=== PATIENT | female | born 1985 | race Caucasian/White ===

== ENCOUNTER 2016-05-10 14:04 | Emergency (ER) | payer OTHER ==
--- NOTE | 2016-05-10 15:09 | ED ORDER SUMMARY ---
..... Patient: LEILA LOPES OrderSheet [facility] VisitID: [id number] [place] [address] 30y, F Registration Date/Time: 05/10/2016 ORDER SHEET Weight: 90.7 kg (stated) Allergies: No Known Drug Allergy GENERAL ORDERS: RSV Rapid Screen (Nasal Pharyngeal) (nasal) Urgent (14:31 05/10/2016 DDean R.N. per protocol) (Ack 14:34 LNations ER Tech1) (14:52 LNations ER Tech1) Rapid Influenza Screen (Nasal Pharyngeal) (nasal) Urgent (14:31 05/10/2016 DDean R.N. per protocol) (Ack 14:34 LNations ER Tech1) (14:52 LNations ER Tech1) MEDICATION ORDERS: IV FLUIDS: ORDER SHEET NOTES: [Electronically signed by Odessa Koroma R.N. (15:22 05/10/2016)] [Electronically signed by Kerri PaulNCharliPCharli (22:47 05/10/2016)] [Electronically locked/signed by Odessa Koroma R.N. (15:22 05/10/2016)]
--- NOTE | 2016-05-10 15:09 | ED CLINICAL REPORT ---
Clinical Report - Physicians/Mid Levels [facility] [address] [place] [address] 05/10/2016 14:05 Patient: LEILA LOPES Time Seen: 14:53; initial patient contact, initial documentation, patient care assumed. Arrived- By private vehicle. Historian- patient. HISTORY OF PRESENT ILLNESS Chief Complaint: COUGH. This started about 1 months ago and is still present and worsening. (now with green productive cough, started in sinuses and now feels like it is moving down into chest). The illness is described as moderate. The patient has had a cough, sinus pressure, sinus drainage and generalized muscle aches. She has had moderate amounts of green sputum. She has had chest soreness (hurts to breathe and cough). No sore throat, nasal congestion or discharge or ear pain. Additional history - The patient has had contact with a sick child. Symptoms of the sick contact include cough. They have had similar symptoms. No recent travel. Similar symptoms previously: None. Recent medical care: Not recently seen/assessed. REVIEW OF SYSTEMS The patient has had a pressure-like frontal and facial headache. All systems otherwise negative, except as recorded above. PAST HISTORY See nurses notes. PROBLEMS: Mastitis. Dental Caries. --14:26 Hang, Cyn RCharliN. ADDITIONAL SURGERIES: no known surgeries. SOCIAL HISTORY Occasional alcohol use. Second-hand smoke exposure. No drug use. No recent travel. Is a local resident. FAMILY HISTORY Negative. ADDITIONAL NOTES The nursing notes have been reviewed with agreement regarding the chief complaint, HPI, ROS, PMH and patient medications and allergies. PHYSICAL EXAM Vital Signs: 05/10/2016 14:20 BP: 127/84. HR: 86. RR: 18. O2 saturation: 98%. Temp: 99.2 F. Pain level now: 6/10. Have been reviewed as normal and appear to be correct. Appearance: Alert. No acute distress. Eyes: Pupils equal, round and reactive to light. Eyes normal inspection. ENT: Ears normal. Nose normal. Pharynx normal. Uvula midline. Neck: Normal inspection. Neck supple. CVS: Normal heart rate and rhythm. Heart sounds normal. Pulses normal. Respiratory: No respiratory distress. Breath sounds normal. Back: Normal inspection. Skin: Skin warm and dry. Normal skin color. No rash. Normal skin turgor. Extremities: Extremities exhibit normal ROM. No lower extremity edema. Neuro: Oriented X 3. No motor deficit. No sensory deficit. PROGRESS AND PROCEDURES Course of Care: MANAGER SERVICES Student Lissette assisting with hx, exam and tx plan, with my supervision. Patient counseled in person regarding the patient's stable condition and diagnosis. 15:09. Differential Diagnosis: Other possible considerations: sinusitis, allergies, uri, viral illness, flu, bronchitis, pneumonia. Above considerations are based on history and physical exam. Differential diagnosis was discussed with patient. Disposition: Discharged home in good and unchanged condition (15:09). Condition: good and stable. CLINICAL IMPRESSION Acute mucopurulent bronchitis. No chronic obstructive pulmonary disease, asthma or bronchospasm. INSTRUCTIONS Do not work today, tomorrow. Warnings: GENERAL WARNINGS: Return or contact your physician immediately if your condition worsens or changes unexpectedly, if not improving as expected, or if other problems arise. Specifically return if problem worsens. Prescription Medications: Zithromax 250 mg tablets: take 2 orally today, followed by 1 daily for the next 4 days. No refills. Substitution is permissible. OTC Medications: Mucinex DM: (available over the counter) take 1 tablet orally every 12 hours as needed for cough. Dispense twenty (20). No refill. Follow-up: Follow up with your doctor in about three days even if well. Call for an appointment. Summary of care provided to patient. Understanding of the discharge instructions verbalized by patient. (Electronically signed by Kerri Paul A.R.N.P. 05/10/2016 22:47)
--- NOTE | 2016-05-10 15:09 | ED CLINICAL REPORT ---
Clinical Report - Physicians/Mid Levels [facility] [address] [place] [address] 05/10/2016 14:05 Patient: LEILA LOPES Time Seen: 14:53; initial patient contact, initial documentation, patient care assumed. Arrived- By private vehicle. Historian- patient. HISTORY OF PRESENT ILLNESS Chief Complaint: COUGH. This started about 1 months ago and is still present and worsening. (now with green productive cough, started in sinuses and now feels like it is moving down into chest). The illness is described as moderate. The patient has had a cough, sinus pressure, sinus drainage and generalized muscle aches. She has had moderate amounts of green sputum. She has had chest soreness (hurts to breathe and cough). No sore throat, nasal congestion or discharge or ear pain. Additional history - The patient has had contact with a sick child. Symptoms of the sick contact include cough. They have had similar symptoms. No recent travel. Similar symptoms previously: None. Recent medical care: Not recently seen/assessed. REVIEW OF SYSTEMS The patient has had a pressure-like frontal and facial headache. All systems otherwise negative, except as recorded above. PAST HISTORY See nurses notes. PROBLEMS: Mastitis. Dental Caries. --14:26 Hang, Cyn RCharliN. ADDITIONAL SURGERIES: no known surgeries. SOCIAL HISTORY Occasional alcohol use. Second-hand smoke exposure. No drug use. No recent travel. Is a local resident. FAMILY HISTORY Negative. ADDITIONAL NOTES The nursing notes have been reviewed with agreement regarding the chief complaint, HPI, ROS, PMH and patient medications and allergies. PHYSICAL EXAM Vital Signs: 05/10/2016 14:20 BP: 127/84. HR: 86. RR: 18. O2 saturation: 98%. Temp: 99.2 F. Pain level now: 6/10. Have been reviewed as normal and appear to be correct. Appearance: Alert. No acute distress. Eyes: Pupils equal, round and reactive to light. Eyes normal inspection. ENT: Ears normal. Nose normal. Pharynx normal. Uvula midline. Neck: Normal inspection. Neck supple. CVS: Normal heart rate and rhythm. Heart sounds normal. Pulses normal. Respiratory: No respiratory distress. Breath sounds normal. Back: Normal inspection. Skin: Skin warm and dry. Normal skin color. No rash. Normal skin turgor. Extremities: Extremities exhibit normal ROM. No lower extremity edema. Neuro: Oriented X 3. No motor deficit. No sensory deficit. PROGRESS AND PROCEDURES Course of Care: MOLD SHIFTER Student Lissette assisting with hx, exam and tx plan, with my supervision. Patient counseled in person regarding the patient's stable condition and diagnosis. 15:09. Differential Diagnosis: Other possible considerations: sinusitis, allergies, uri, viral illness, flu, bronchitis, pneumonia. Above considerations are based on history and physical exam. Differential diagnosis was discussed with patient. Disposition: Discharged home in good and unchanged condition (15:09). Condition: good and stable. CLINICAL IMPRESSION Acute mucopurulent bronchitis. No chronic obstructive pulmonary disease, asthma or bronchospasm. INSTRUCTIONS Do not work today, tomorrow. Warnings: GENERAL WARNINGS: Return or contact your physician immediately if your condition worsens or changes unexpectedly, if not improving as expected, or if other problems arise. Specifically return if problem worsens. Prescription Medications: Zithromax 250 mg tablets: take 2 orally today, followed by 1 daily for the next 4 days. No refills. Substitution is permissible. OTC Medications: Mucinex DM: (available over the counter) take 1 tablet orally every 12 hours as needed for cough. Dispense twenty (20). No refill. Follow-up: Follow up with your doctor in about three days even if well. Call for an appointment. Summary of care provided to patient. Understanding of the discharge instructions verbalized by patient. (Electronically signed by Kerri Paul A.R.N.P. 05/10/2016 22:47)
--- NOTE | 2016-05-10 15:09 | ED ORDER SUMMARY ---
..... Patient: LEILA LOPES OrderSheet [facility] VisitID: [id number] [place] [address] 30y, F Registration Date/Time: 05/10/2016 ORDER SHEET Weight: 90.7 kg (stated) Allergies: No Known Drug Allergy GENERAL ORDERS: RSV Rapid Screen (Nasal Pharyngeal) (nasal) Urgent (14:31 05/10/2016 DDean R.N. per protocol) (Ack 14:34 LNations ER Tech1) (14:52 LNations ER Tech1) Rapid Influenza Screen (Nasal Pharyngeal) (nasal) Urgent (14:31 05/10/2016 DDean R.N. per protocol) (Ack 14:34 LNations ER Tech1) (14:52 LNations ER Tech1) MEDICATION ORDERS: IV FLUIDS: ORDER SHEET NOTES: [Electronically signed by Odessa Koroma R.N. (15:22 05/10/2016)] [Electronically signed by Kerri PaulNCharliPCharli (22:47 05/10/2016)] [Electronically locked/signed by Odessa Koroma R.N. (15:22 05/10/2016)]
--- NOTE | 2016-05-10 15:09 | ED NURSING NOTES ---
Clinical Report - Nurses [facility] [address] [place] [address] 05/10/2016 14:05 Patient: LEILA LOPES TRIAGE Triage time 1420. Acuity: LEVEL 3. Chief Complaint: FEVER, COUGH and BODY ACHES. --14:30 Cyn Mauricio R.N. 14:20 05/10/16. BP: 127/84. HR: 86. RR: 18. O2 saturation: 98%. Temp: 99.2 F. Pain level now: 08/28. --14:30 Cyn Mauricio R.N. Weight: 90.7 kg stated. Height/Length: 67 inches Per Patient. BMI: 31.3. --14:28 Cyn Mauricio R.N. Medications None. --14:27 Cyn Mauricio R.N. Gemma-Delancey Plus Cold & Flu Oral, prn, last dose 0400. Ibuprofen Oral 800 mg, PRN, last dose 0400. --14:27 Cyn Mauricio R.N. Allergies No Known Drug Allergy. --14:27 Cyn Mauricio R.N. History Arrived by private vehicle. Historian: patient. Unaccompanied. No primary care physician. Onset. (has been sick off and on x 1 month. 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 ( Pt in today due to cough with greenish sutum and chest pain bilateral axillary areas and mid sternal with cough). She has had a headache. ( had a recent sinus infection -taking only sudafed). PAST MEDICAL HX: Last normal menstrual period- 1 month--has IUD. SURGERY HX: No history of previous surgery. SOCIAL HX: Smoker- current status unknown (2nd hand smoke from boyrfriend and mom). Occasional alcohol use. No drug use. --14:30 Cyn Mauricio R.N. PROBLEMS: Mastitis. Dental Caries. --14:26 Cyn Mauricio R.N. ADDITIONAL SURGERIES: no known surgeries. Interventions ID band on patient. To treatment room. --14:30 Cyn Mauricio R.N. NURSING PROGRESS NOTES 14:20. Patient gowned. Head of bed elevated. Reassurance given. Patient identifiers checked. Call light placed in reach. Side rails up. Bed placed in lowest position. Patient ready for evaluation- chart flagged. --14:30 Cyn Mauricio R.N. 14:25. Flu swab obtained. Patient ID band checked for patient name and birthdate: patient confirmed. RSV nasal swab obtained by RN via nasal pharyngeal swab. Labeled in the presence of the patient and sent to lab. --14:30 Cyn Mauricio R.N. DISPOSITION / DISCHARGE 15:15. Condition at departure: unchanged and stable. No learning barriers present. Discharge instructions provided and reviewed with the patient. Reviewed medication(s) dosing information. Prescription(s) given to the patient (mucinex and z pack). Work note given. Patient verbalized understanding. Written instructions provided in Amharic. The patient was discharged home. She left the Emergency Department ambulatory and via private vehicle. Patient driving. --15:21 Odessa Koroma R.N. 15:15 05/10/16. BP: deferred. HR: deferred. RR: deferred. O2 saturation: deferred. Temp: deferred. Pain level now deferred. --15:21 Odessa Koroma R.N. Locked/Released at 05/10/2016 15:22 by Odessa Koroma R.N.
--- NOTE | 2016-05-10 15:09 | ED NURSING NOTES ---
Clinical Report - Nurses [facility] [address] [place] [address] 05/10/2016 14:05 Patient: LEILA LOPES TRIAGE Triage time 1420. Acuity: LEVEL 3. Chief Complaint: FEVER, COUGH and BODY ACHES. --14:30 Cyn Mauricio R.N. 14:20 05/10/16. BP: 127/84. HR: 86. RR: 18. O2 saturation: 98%. Temp: 99.2 F. Pain level now: 08/28. --14:30 Cyn Mauricio R.N. Weight: 90.7 kg stated. Height/Length: 67 inches Per Patient. BMI: 31.3. --14:28 Cyn Mauricio R.N. Medications None. --14:27 Cyn Mauricio R.N. Gemma-Proctor Plus Cold & Flu Oral, prn, last dose 0400. Ibuprofen Oral 800 mg, PRN, last dose 0400. --14:27 Cyn Mauricio R.N. Allergies No Known Drug Allergy. --14:27 Cyn Mauricio R.N. History Arrived by private vehicle. Historian: patient. Unaccompanied. No primary care physician. Onset. (has been sick off and on x 1 month. 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 ( Pt in today due to cough with greenish sutum and chest pain bilateral axillary areas and mid sternal with cough). She has had a headache. ( had a recent sinus infection -taking only sudafed). PAST MEDICAL HX: Last normal menstrual period- 1 month--has IUD. SURGERY HX: No history of previous surgery. SOCIAL HX: Smoker- current status unknown (2nd hand smoke from boyrfriend and mom). Occasional alcohol use. No drug use. --14:30 Cyn Mauricio R.N. PROBLEMS: Mastitis. Dental Caries. --14:26 Cyn Mauricio R.N. ADDITIONAL SURGERIES: no known surgeries. Interventions ID band on patient. To treatment room. --14:30 Cyn Mauricio R.N. NURSING PROGRESS NOTES 14:20. Patient gowned. Head of bed elevated. Reassurance given. Patient identifiers checked. Call light placed in reach. Side rails up. Bed placed in lowest position. Patient ready for evaluation- chart flagged. --14:30 Cyn Mauricio R.N. 14:25. Flu swab obtained. Patient ID band checked for patient name and birthdate: patient confirmed. RSV nasal swab obtained by RN via nasal pharyngeal swab. Labeled in the presence of the patient and sent to lab. --14:30 Cyn Mauricio R.N. DISPOSITION / DISCHARGE 15:15. Condition at departure: unchanged and stable. No learning barriers present. Discharge instructions provided and reviewed with the patient. Reviewed medication(s) dosing information. Prescription(s) given to the patient (mucinex and z pack). Work note given. Patient verbalized understanding. Written instructions provided in Kinyarwanda. The patient was discharged home. She left the Emergency Department ambulatory and via private vehicle. Patient driving. --15:21 Odessa Koroma R.N. 15:15 05/10/16. BP: deferred. HR: deferred. RR: deferred. O2 saturation: deferred. Temp: deferred. Pain level now deferred. --15:21 Odessa Koroma R.N. Locked/Released at 05/10/2016 15:22 by Odessa Koroma R.N.
--- NOTE | 2016-05-10 22:49 | ED MED RECONCILIATION SUMMARY ---
Patient: LEILA LOPES Medication Reconciliation Report [facility] VisitID: [id number] [place] [address] 30y, F Registration Date/Time: 05/10/2016 Weight: 90.7 kg Height/Length: 67 in. BMI: 31.3 ALLERGIES: No Known Drug Allergy The patient's Home Medications are listed below: THE FOLLOWING MEDICATIONS NEED TO BE RECONCILED: Gemma-Mary D Plus Cold & Flu Oral, prn, last dose: 0400 Ibuprofen Oral 800 mg, PRN, last dose: 0400 The source(s) of the original Home Medication information: Not obtained. The following Medications were given to the patient in the Emergency Department: None. The following Medications were prescribed to the patient: Zithromax 250 mg tablets: take 2 orally today, followed by 1 daily for the next 4 days. No refills. Substitution is permissible. -- Kerri Paul A.R.NCharliP. Mucinex DM: (available over the counter) take 1 tablet orally every 12 hours as needed for cough. Dispense twenty (20). No refill. -- Kerri Paul A.R.NCharliP.
--- NOTE | 2016-05-10 22:49 | ED DISCHARGE INSTRUCTIONS ---
Patient: LEILA LOPES General Instructions [facility] VisitID: [id number] [place] [address] 30y, F Registration Date/Time: 05/10/2016 INSTRUCTIONS Do not work today, tomorrow. Warnings: GENERAL WARNINGS: Return or contact your physician immediately if your condition worsens or changes unexpectedly, if not improving as expected, or if other problems arise. Specifically return if problem worsens. Prescription Medications: Zithromax 250 mg tablets: take 2 orally today, followed by 1 daily for the next 4 days. No refills. Substitution is permissible. OTC Medications: Mucinex DM: (available over the counter) take 1 tablet orally every 12 hours as needed for cough. Dispense twenty (20). No refill. Follow-up: Follow up with your doctor in about three days even if well. Call for an appointment. Summary of care provided to patient. Understanding of the discharge instructions verbalized by patient. ADDITIONAL INFORMATION Bronchitis (Adult: Abx Tx) BRONCHITIS is an infection of the air passages (bronchial tubes). It often occurs during the common cold. Symptoms include cough with mucus (phlegm) and low-grade fever. Bronchitis usually lasts 7-14 days. Mild cases can be treated with simple home remedies. More severe infection is treated with an antibiotic. Home Care: If symptoms are severe, rest at home for the first 2-3 days. When you resume activity, don't let yourself get too tired. Do not smoke. Avoid being exposed to the smoke of others. You may use acetaminophen (Tylenol) or ibuprofen (Motrin, Advil) to control fever or pain, unless another medicine was prescribed for this. [NOTE: If you have chronic liver or kidney disease or ever had a stomach ulcer or GI bleeding, talk with your doctor before using these medicines.] Your appetite may be poor, so a light diet is fine. Avoid dehydration by drinking 6-8 glasses of fluids per day (water, soft, drinks, juices, tea, soup, etc.). Extra fluids will help loosen secretions in the lungs. Umra-dbu-ufpaorc cough medicines that containdextromethorphan(such as Robitussin DM) and decongestants (Actifed or Sudafed) may help relieve cough and congestion. [NOTE: Do not use decongestants if you have high blood pressure.] Finish all antibiotic medicine, even if you are feeling better after only a few days. Follow Up with your doctor or as directed if you dont start to feel better after three days. [NOTE: If you are age 65 or older, or if you have chronic asthma or COPD, we recommend a PNEUMOCOCCAL VACCINATION every five years and a yearly INFLUENZAVACCINATION (FLU-SHOT) every . Ask your doctor about this. If you had an X-ray, a radiologist will review it. You will be notified of any new findings that may affect your care.] Get Prompt Medical Attention if any of the following occur: Fever over 100.4F (38.0C) for more than three days Trouble breathing, wheezing or pain with breathing Coughing up blood or increased amounts of colored sputum Weakness, drowsiness, headache, facial pain, ear pain or a stiff neck Azithromycin Oral tablet What is this medicine? AZITHROMYCIN (az ith anders MYE sin) is a macrolide antibiotic. It is used to treat or prevent certain kinds of bacterial infections. It will not work for colds, flu, or other viral infections. How should I use this medicine? Take this medicine by mouth with a full glass of water. Follow the directions on the prescription label. The tablets can be taken with food or on an empty stomach. If the medicine upsets your stomach, take it with food. Take your medicine at regular intervals. Do not take your medicine more often than directed. Take all of your medicine as directed even if you think your are better. Do not skip doses or stop your medicine early. Talk to your cleaning and washing equipment operator regarding the use of this medicine in children. Special care may be needed. What side effects may I notice from receiving this medicine? Side effects that you should report to your doctor or health daycare assistant as soon as possible: allergic reactions like skin rash, itching or hives, swelling of the face, lips, or tongue confusion, nightmares or hallucinations dark urine difficulty breathing hearing loss irregular heartbeat or chest pain pain or difficulty passing urine redness, blistering, peeling or loosening of the skin, including inside the mouth white patches or sores in the mouth yellowing of the eyes or skin Side effects that usually do not require medical attention (report to your doctor or health daycare assistant if they continue or are bothersome): diarrhea dizziness, drowsiness headache stomach upset or vomiting tooth discoloration vaginal irritation What may interact with this medicine? Do not take this medicine with any of the following medications: lincomycin This medicine may also interact with the following medications: amiodarone antacids cyclosporine digoxin magnesium nelfinavir phenytoin warfarin What if I miss a dose? If you miss a dose, take it as soon as you can. If it is almost time for your next dose, take only that dose. Do not take double or extra doses. Where should I keep my medicine? Keep out of the reach of children. Store at room temperature between 15 and 30 degrees C (59 and 86 degrees F). Throw away any unused medicine after the expiration date. What should I tell my health care provider before I take this medicine? They need to know if you have any of these conditions: kidney disease liver disease irregular heartbeat or heart disease an unusual or allergic reaction to azithromycin, erythromycin, other macrolide antibiotics, foods, dyes, or preservatives or trying to get breast-feeding What should I watch for while using this medicine? Tell your doctor or health daycare assistant if your symptoms do not improve. Do not treat diarrhea with over the counter products. Contact your doctor if you have diarrhea that lasts more than 2 days or if it is severe and watery. This medicine can make you more sensitive to the sun. Keep out of the sun. If you cannot avoid being in the sun, wear protective clothing and use sunscreen. Do not use sun lamps or tanning beds/booths. Guaifenesin Oral syrup What is this medicine? GUAIFENESIN (gwye FEN e sin) is an expectorant. It helps to thin mucous and make coughs more productive. This medicine is used to treat coughs caused by colds or the flu. It is not intended to treat chronic cough caused by smoking, asthma, emphysema, or heart failure. How should I use this medicine? Take this medicine by mouth. Follow the directions on the prescription label. Use a specially marked spoon or container to measure your dose. Household spoons are not accurate. Take your medicine at regular intervals. Do not take it more often than directed. Talk to your cleaning and washing equipment operator regarding the use of this medicine in children. Special care may be needed. What side effects may I notice from receiving this medicine? Side effects that you should report to your doctor or health daycare assistant as soon as possible: allergic reactions like skin rash, itching or hives, swelling of the face, lips, or tongue Side effects that usually do not require medical attention (report to your doctor or health daycare assistant if they continue or are bothersome): dizziness headache stomach upset What may interact with this medicine? Interactions are not expected. What if I miss a dose? If you miss a dose, take it as soon as you can. If it is almost time for your next dose, take only that dose. Do not take double or extra doses. Where should I keep my medicine? Keep out of the reach of children. Store at room temperature between 20 and 25 degrees C (68 and 77 degrees F). Do not freeze. Keep container tightly closed. Throw away any unused medicine after the expiration date. What should I tell my health care provider before I take this medicine? They need to know if you have any of these conditions: diabetes fever kidney disease an unusual or allergic reaction to guaifenesin, other medicines, foods, dyes, or preservatives or trying to get breast-feeding What should I watch for while using this medicine? Do not treat a cough for more than 1 week without consulting your doctor or health daycare assistant. If you also have a high fever, skin rash, continuing headache, or sore throat, see your doctor. For best results, drink 6 to 8 glasses water daily while you are taking this medicine. You have been given the following additional information: Bronchitis, Antiobiotic Treatment (Adult) Azithromycin Oral tablet Guaifenesin Oral syrup Do not work today, tomorrow. (Electronically signed by Kerri Paul A.R.N.P. 05/10/2016 22:47)
--- NOTE | 2016-05-10 22:49 | ED MAR SUMMARY ---
..... Medication Administration Record [facility] [address] [place], [place] [id number] Patient: LEILA LOPES Visit ID: [id number] 30y, F Weight: 90.7 kg Height/Length: 67 in BMI: 31.3 ALLERGIES: No Known Drug Allergy
--- NOTE | 2016-05-10 22:49 | ED MAR SUMMARY ---
..... Medication Administration Record [facility] [address] [place], [place] [id number] Patient: LEILA LOPES Visit ID: [id number] 30y, F Weight: 90.7 kg Height/Length: 67 in BMI: 31.3 ALLERGIES: No Known Drug Allergy
--- NOTE | 2016-05-10 22:49 | ED MED RECONCILIATION SUMMARY ---
Patient: LEILA LOPES Medication Reconciliation Report [facility] VisitID: [id number] [place] [address] 30y, F Registration Date/Time: 05/10/2016 Weight: 90.7 kg Height/Length: 67 in. BMI: 31.3 ALLERGIES: No Known Drug Allergy The patient's Home Medications are listed below: THE FOLLOWING MEDICATIONS NEED TO BE RECONCILED: Gemma-Charlotte Plus Cold & Flu Oral, prn, last dose: 0400 Ibuprofen Oral 800 mg, PRN, last dose: 0400 The source(s) of the original Home Medication information: Not obtained. The following Medications were given to the patient in the Emergency Department: None. The following Medications were prescribed to the patient: Zithromax 250 mg tablets: take 2 orally today, followed by 1 daily for the next 4 days. No refills. Substitution is permissible. -- Kerri Paul A.R.NCharliP. Mucinex DM: (available over the counter) take 1 tablet orally every 12 hours as needed for cough. Dispense twenty (20). No refill. -- Kerri Paul A.R.NCharliP.
--- NOTE | 2016-05-10 22:49 | ED DISCHARGE INSTRUCTIONS ---
Patient: LEILA LOPES General Instructions [facility] VisitID: [id number] [place] [address] 30y, F Registration Date/Time: 05/10/2016 INSTRUCTIONS Do not work today, tomorrow. Warnings: GENERAL WARNINGS: Return or contact your physician immediately if your condition worsens or changes unexpectedly, if not improving as expected, or if other problems arise. Specifically return if problem worsens. Prescription Medications: Zithromax 250 mg tablets: take 2 orally today, followed by 1 daily for the next 4 days. No refills. Substitution is permissible. OTC Medications: Mucinex DM: (available over the counter) take 1 tablet orally every 12 hours as needed for cough. Dispense twenty (20). No refill. Follow-up: Follow up with your doctor in about three days even if well. Call for an appointment. Summary of care provided to patient. Understanding of the discharge instructions verbalized by patient. ADDITIONAL INFORMATION Bronchitis (Adult: Abx Tx) BRONCHITIS is an infection of the air passages (bronchial tubes). It often occurs during the common cold. Symptoms include cough with mucus (phlegm) and low-grade fever. Bronchitis usually lasts 7-14 days. Mild cases can be treated with simple home remedies. More severe infection is treated with an antibiotic. Home Care: If symptoms are severe, rest at home for the first 2-3 days. When you resume activity, don't let yourself get too tired. Do not smoke. Avoid being exposed to the smoke of others. You may use acetaminophen (Tylenol) or ibuprofen (Motrin, Advil) to control fever or pain, unless another medicine was prescribed for this. [NOTE: If you have chronic liver or kidney disease or ever had a stomach ulcer or GI bleeding, talk with your doctor before using these medicines.] Your appetite may be poor, so a light diet is fine. Avoid dehydration by drinking 6-8 glasses of fluids per day (water, soft, drinks, juices, tea, soup, etc.). Extra fluids will help loosen secretions in the lungs. Qvaq-vyy-yrgroxl cough medicines that containdextromethorphan(such as Robitussin DM) and decongestants (Actifed or Sudafed) may help relieve cough and congestion. [NOTE: Do not use decongestants if you have high blood pressure.] Finish all antibiotic medicine, even if you are feeling better after only a few days. Follow Up with your doctor or as directed if you dont start to feel better after three days. [NOTE: If you are age 65 or older, or if you have chronic asthma or COPD, we recommend a PNEUMOCOCCAL VACCINATION every five years and a yearly INFLUENZAVACCINATION (FLU-SHOT) every . Ask your doctor about this. If you had an X-ray, a radiologist will review it. You will be notified of any new findings that may affect your care.] Get Prompt Medical Attention if any of the following occur: Fever over 100.4F (38.0C) for more than three days Trouble breathing, wheezing or pain with breathing Coughing up blood or increased amounts of colored sputum Weakness, drowsiness, headache, facial pain, ear pain or a stiff neck Azithromycin Oral tablet What is this medicine? AZITHROMYCIN (az ith anders MYE sin) is a macrolide antibiotic. It is used to treat or prevent certain kinds of bacterial infections. It will not work for colds, flu, or other viral infections. How should I use this medicine? Take this medicine by mouth with a full glass of water. Follow the directions on the prescription label. The tablets can be taken with food or on an empty stomach. If the medicine upsets your stomach, take it with food. Take your medicine at regular intervals. Do not take your medicine more often than directed. Take all of your medicine as directed even if you think your are better. Do not skip doses or stop your medicine early. Talk to your heel seat trimmer regarding the use of this medicine in children. Special care may be needed. What side effects may I notice from receiving this medicine? Side effects that you should report to your doctor or health managed care nurse as soon as possible: allergic reactions like skin rash, itching or hives, swelling of the face, lips, or tongue confusion, nightmares or hallucinations dark urine difficulty breathing hearing loss irregular heartbeat or chest pain pain or difficulty passing urine redness, blistering, peeling or loosening of the skin, including inside the mouth white patches or sores in the mouth yellowing of the eyes or skin Side effects that usually do not require medical attention (report to your doctor or health managed care nurse if they continue or are bothersome): diarrhea dizziness, drowsiness headache stomach upset or vomiting tooth discoloration vaginal irritation What may interact with this medicine? Do not take this medicine with any of the following medications: lincomycin This medicine may also interact with the following medications: amiodarone antacids cyclosporine digoxin magnesium nelfinavir phenytoin warfarin What if I miss a dose? If you miss a dose, take it as soon as you can. If it is almost time for your next dose, take only that dose. Do not take double or extra doses. Where should I keep my medicine? Keep out of the reach of children. Store at room temperature between 15 and 30 degrees C (59 and 86 degrees F). Throw away any unused medicine after the expiration date. What should I tell my health care provider before I take this medicine? They need to know if you have any of these conditions: kidney disease liver disease irregular heartbeat or heart disease an unusual or allergic reaction to azithromycin, erythromycin, other macrolide antibiotics, foods, dyes, or preservatives or trying to get breast-feeding What should I watch for while using this medicine? Tell your doctor or health managed care nurse if your symptoms do not improve. Do not treat diarrhea with over the counter products. Contact your doctor if you have diarrhea that lasts more than 2 days or if it is severe and watery. This medicine can make you more sensitive to the sun. Keep out of the sun. If you cannot avoid being in the sun, wear protective clothing and use sunscreen. Do not use sun lamps or tanning beds/booths. Guaifenesin Oral syrup What is this medicine? GUAIFENESIN (gwye FEN e sin) is an expectorant. It helps to thin mucous and make coughs more productive. This medicine is used to treat coughs caused by colds or the flu. It is not intended to treat chronic cough caused by smoking, asthma, emphysema, or heart failure. How should I use this medicine? Take this medicine by mouth. Follow the directions on the prescription label. Use a specially marked spoon or container to measure your dose. Household spoons are not accurate. Take your medicine at regular intervals. Do not take it more often than directed. Talk to your heel seat trimmer regarding the use of this medicine in children. Special care may be needed. What side effects may I notice from receiving this medicine? Side effects that you should report to your doctor or health managed care nurse as soon as possible: allergic reactions like skin rash, itching or hives, swelling of the face, lips, or tongue Side effects that usually do not require medical attention (report to your doctor or health managed care nurse if they continue or are bothersome): dizziness headache stomach upset What may interact with this medicine? Interactions are not expected. What if I miss a dose? If you miss a dose, take it as soon as you can. If it is almost time for your next dose, take only that dose. Do not take double or extra doses. Where should I keep my medicine? Keep out of the reach of children. Store at room temperature between 20 and 25 degrees C (68 and 77 degrees F). Do not freeze. Keep container tightly closed. Throw away any unused medicine after the expiration date. What should I tell my health care provider before I take this medicine? They need to know if you have any of these conditions: diabetes fever kidney disease an unusual or allergic reaction to guaifenesin, other medicines, foods, dyes, or preservatives or trying to get breast-feeding What should I watch for while using this medicine? Do not treat a cough for more than 1 week without consulting your doctor or health managed care nurse. If you also have a high fever, skin rash, continuing headache, or sore throat, see your doctor. For best results, drink 6 to 8 glasses water daily while you are taking this medicine. You have been given the following additional information: Bronchitis, Antiobiotic Treatment (Adult) Azithromycin Oral tablet Guaifenesin Oral syrup Do not work today, tomorrow. (Electronically signed by Kerri Paul A.R.N.P. 05/10/2016 22:47)
== END 2016-05-10 15:14 | disposition home or self-care (01) ==
LOC: ED SRH 14:04
DX: J20.9 Acute bronchitis, unspecified (principal); Z77.22 Contact with and (suspected) exposure to environmental tobacco smoke (acute) (chronic)
CPT/HCPCS: 91400; 91576

== ENCOUNTER 2016-06-22 16:11 | Emergency (ER) | payer OTHER ==
--- NOTE | 2016-06-22 16:37 | ED NURSING NOTES ---
Clinical Report - Nurses [facility] [address] [place] [address] 06/22/2016 16:12 Patient: LEILA LOPES TRIAGE Triage time 16:24. Acuity: LEVEL 4. Chief Complaint: ALLERGIC REACTION and HIVES. Alert. No acute distress. SEPSIS SCREEN: Sepsis Screen. Negative (no infection suspected/documented). SHEILA COMA SCORE: Sheila Coma Scale: 15- eyes open spontaneously (4); best verbal response- oriented x 4 (5); best motor response- obeys commands (6). --16:30 Janiya Braun R.N. 16:24 06/22/16. BP: 107/69. HR: 103. RR: 18. O2 saturation: 100%. Temp: 98.7 F. Pain level now 5/10. --16:30 Janiya Braun R.N. Weight: 92 kg stated. Height/Length: 67 inches Per Patient. BMI: 31.8. --16:27 Janiya Braun R.N. Medications None. --16:29 Janiya Braun R.N. Allergies No Known Drug Allergy. --16:29 Janiya Braun R.N. History Arrived by private vehicle. Historian: patient. Accompanied by (boyfriend). Primary physician (none). This started last night. Onset. (1 hour ago got worse). 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 (last dose in the AM at 1030). PAST MEDICAL HX: Immunizations: up-to-date. SOCIAL HX: Never smoker. No alcohol use or drug use. ABUSE ASSESSMENT: Abuse assessment: The patient was asked "Do you feel safe in your home?" and "Has anyone hurt you or threatened to hurt you?". No report of abuse. SELF HARM ASSESSMENT: A self harm assessment was performed. The patient answered "no" to the question "Do you have thoughts of harming or killing yourself?" and "Have you recently had thoughts about harming or killing others?". NUTRITIONAL RISK ASSESSMENT: The nutritional risk assessment revealed no deficiencies. FUNCTIONAL ASSESSMENT: Functional assessment: no impairments noted. LEARNING NEEDS ASSESSMENT: The learning needs assessment revealed no barriers. --16:30 Janiya Braun R.N. PROBLEMS: Bronchitis. Mastitis. --16:30 Janiya Braun R.N. Interventions ID band on patient. Ambulatory. --16:30 Janiya Braun R.N. PHYSICAL ASSESSMENT Ambulatory to room. GENERAL / NEURO / PSYCH: Alert. The patient does not appear to be in acute distress. RESPIRATORY: Respirations not labored. CVS: Capillary refill less than 2 seconds. SKIN: Skin is warm and dry. Urticaria- associated with itching and swelling. --16:31 Janiya Braun R.N. NURSING PROGRESS NOTES Patient gowned. Two patient identifiers checked. Call light placed in reach. Side rails up x 2. Bed placed in lowest position. Brakes of bed on. Patient ready for evaluation- chart flagged. --16:31 Janiya Braun R.N. 16:38 06/22/2016 Benadryl (DiphenhydrAMINE HCl) IM 50 mg given. Given in the right gluteus junior. Allergies verified, confirmed 5 rights and sedative warning given to the patient and patient's bottle blowing machine tender. --16:38 Manuel Colon R.N. 16:38 06/22/2016 Decadron (Dexamethasone Sodium Phosphate) IM 8 mg given. Given in the left gluteus junior. Allergies verified and confirmed 5 rights. --16:38 Manuel Colon R.N. 16:38 06/22/2016 Pepcid (Famotidine) PO Tablets 40 mg given. Allergies verified and confirmed 5 rights. --16:39 Manuel Colon R.N. DISPOSITION / DISCHARGE Departure time: 16:44 Jun 22 2016. Condition at departure: improved. No learning barriers present. Discharge instructions provided and reviewed with the patient and spouse. Reviewed warnings. Reviewed medication(s). Treatments reviewed. Reviewed referrals. Patient verbalized understanding. Written instructions provided in Irish. The patient was discharged home and accompanied by spouse. She left the Emergency Department ambulatory and via private vehicle. Spouse driving. --16:44 Manuel Colon R.N. 16:24 06/22/16. BP: 107/69. HR: 103. RR: 18. O2 saturation: 100%. Temp: 98.7 F. Pain level now 07/28. --16:44 Manuel Colon R.N. Locked/Released at 06/22/2016 19:19 by Manuel Colon R.N.
--- NOTE | 2016-06-22 16:37 | ED NURSING NOTES ---
Clinical Report - Nurses [facility] [address] [place] [address] 06/22/2016 16:12 Patient: LEILA LOPES TRIAGE Triage time 16:24. Acuity: LEVEL 4. Chief Complaint: ALLERGIC REACTION and HIVES. Alert. No acute distress. SEPSIS SCREEN: Sepsis Screen. Negative (no infection suspected/documented). SHEILA COMA SCORE: Sheila Coma Scale: 15- eyes open spontaneously (4); best verbal response- oriented x 4 (5); best motor response- obeys commands (6). --16:30 Janiya Braun R.N. 16:24 06/22/16. BP: 107/69. HR: 103. RR: 18. O2 saturation: 100%. Temp: 98.7 F. Pain level now 5/10. --16:30 Janiya Braun R.N. Weight: 92 kg stated. Height/Length: 67 inches Per Patient. BMI: 31.8. --16:27 Janiya Braun R.N. Medications None. --16:29 Janiya Braun R.N. Allergies No Known Drug Allergy. --16:29 Janiya Braun R.N. History Arrived by private vehicle. Historian: patient. Accompanied by (boyfriend). Primary physician (none). This started last night. Onset. (1 hour ago got worse). 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 (last dose in the AM at 1030). PAST MEDICAL HX: Immunizations: up-to-date. SOCIAL HX: Never smoker. No alcohol use or drug use. ABUSE ASSESSMENT: Abuse assessment: The patient was asked "Do you feel safe in your home?" and "Has anyone hurt you or threatened to hurt you?". No report of abuse. SELF HARM ASSESSMENT: A self harm assessment was performed. The patient answered "no" to the question "Do you have thoughts of harming or killing yourself?" and "Have you recently had thoughts about harming or killing others?". NUTRITIONAL RISK ASSESSMENT: The nutritional risk assessment revealed no deficiencies. FUNCTIONAL ASSESSMENT: Functional assessment: no impairments noted. LEARNING NEEDS ASSESSMENT: The learning needs assessment revealed no barriers. --16:30 Janiya Braun R.N. PROBLEMS: Bronchitis. Mastitis. --16:30 Janiya Braun R.N. Interventions ID band on patient. Ambulatory. --16:30 Janiya Braun R.N. PHYSICAL ASSESSMENT Ambulatory to room. GENERAL / NEURO / PSYCH: Alert. The patient does not appear to be in acute distress. RESPIRATORY: Respirations not labored. CVS: Capillary refill less than 2 seconds. SKIN: Skin is warm and dry. Urticaria- associated with itching and swelling. --16:31 Janiya Braun R.N. NURSING PROGRESS NOTES Patient gowned. Two patient identifiers checked. Call light placed in reach. Side rails up x 2. Bed placed in lowest position. Brakes of bed on. Patient ready for evaluation- chart flagged. --16:31 Janiya Braun R.N. 16:38 06/22/2016 Benadryl (DiphenhydrAMINE HCl) IM 50 mg given. Given in the right gluteus junior. 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 --16:38 Manuel Colon R.N. 16:38 06/22/2016 Decadron (Dexamethasone Sodium Phosphate) IM 8 mg given. Given in the left gluteus junior. Allergies verified and confirmed 5 rights. --16:38 Manuel Colon R.N. 16:38 06/22/2016 Pepcid (Famotidine) PO Tablets 40 mg given. Allergies verified and confirmed 5 rights. --16:39 Manuel Colon R.N. DISPOSITION / DISCHARGE Departure time: 16:44 Jun 22 2016. Condition at departure: improved. No learning barriers present. Discharge instructions provided and reviewed with the patient and spouse. Reviewed warnings. Reviewed medication(s). Treatments reviewed. Reviewed referrals. Patient verbalized understanding. Written instructions provided in [place]ian. The patient was discharged home and accompanied by spouse. She left the Emergency Department ambulatory and via private vehicle. Spouse driving. --16:44 Manuel Colon R.N. 16:24 06/22/16. BP: 107/69. HR: 103. RR: 18. O2 saturation: 100%. Temp: 98.7 F. Pain level now 07/28. --16:44 Manuel Colon R.N. Locked/Released at 06/22/2016 19:19 by Manuel Colon R.N.
--- NOTE | 2016-06-22 16:37 | ED ORDER SUMMARY ---
..... Patient: LEILA LOPES OrderSheet [facility] VisitID: [id number] [place] [address] 31y, F Registration Date/Time: 06/22/2016 ORDER SHEET Weight: 92.0 kg (stated) Allergies: No Known Drug Allergy GENERAL ORDERS: MEDICATION ORDERS: Benadryl IM 50 mg (NOW) (16:30 06/22/2016 HBivens A.R.N.P.) (Ack 16:31 SReitz R.N.) (16:38 LWhalen R.N.) Decadron IM 8 mg (NOW) (16:30 06/22/2016 HBivens A.R.N.P.) (Ack 16:31 SReitz R.N.) (16:38 LWhalen R.N.) Pepcid PO 40 mg (NOW) (16:31 06/22/2016 HBivens A.R.N.P.) (Ack 16:31 SReitz R.N.) (16:39 LWhalen R.N.) IV FLUIDS: ORDER SHEET NOTES: [Electronically signed by Manuel Colon R.N. (19:19 06/22/2016)] [Electronically signed by Kerri Paul.R.N.P. (19:38 06/22/2016)] [Electronically locked/signed by Manuel Colon R.N. (19:19 06/22/2016)]
--- NOTE | 2016-06-22 16:37 | ED ORDER SUMMARY ---
..... Patient: LEILA LOPES OrderSheet [facility] VisitID: [id number] [place] [address] 31y, F Registration Date/Time: 06/22/2016 ORDER SHEET Weight: 92.0 kg (stated) Allergies: No Known Drug Allergy GENERAL ORDERS: MEDICATION ORDERS: Benadryl IM 50 mg (NOW) (16:30 06/22/2016 HBivens A.R.N.P.) (Ack 16:31 SReitz R.N.) (16:38 LWhalen R.N.) Decadron IM 8 mg (NOW) (16:30 06/22/2016 HBivens A.R.N.P.) (Ack 16:31 SReitz R.N.) (16:38 LWhalen R.N.) Pepcid PO 40 mg (NOW) (16:31 06/22/2016 HBivens A.R.N.P.) (Ack 16:31 SReitz R.N.) (16:39 LWhalen R.N.) IV FLUIDS: ORDER SHEET NOTES: [Electronically signed by Manuel Colon R.N. (19:19 06/22/2016)] [Electronically signed by Kerri Paul.R.N.P. (19:38 06/22/2016)] [Electronically locked/signed by Manuel Colon R.N. (19:19 06/22/2016)]
--- NOTE | 2016-06-22 16:37 | ED CLINICAL REPORT ---
Clinical Report - Physicians/Mid Levels [facility] [address] [place] [address] 06/22/2016 16:12 Patient: LEILA LOPES Time Seen: 1623; upon arrival, initial patient contact, initial documentation, patient care assumed. Arrived- By private vehicle. Historian- patient. HISTORY OF PRESENT ILLNESS Chief Complaint: ALLERGIC REACTION, SKIN RASH, ITCHING and "HIVES". The patient has had a skin rash and itching but not had swelling or trouble swallowing. No difficulty breathing, dizziness or fainting episodes. This started today and is still present and worsening. It was abrupt in onset and has been constant. A possible cause has been identified. She was recently exposed to food (as possible allergen) - (dairy products). The patient was not assessed by EMS prior to arrival. The patient self administered medication prior to arrival including Benadryl (took x2 pills at 1030, rash went away, but came right back). Similar symptoms previously: Once, worse. Recent medical care: Not recently seen/assessed. REVIEW OF SYSTEMS No sore throat. All systems otherwise negative, except as recorded above. PAST HISTORY See nurses notes. Prior allergic reaction. PROBLEMS: Bronchitis. Mastitis. --16:30 Janiya Braun R.N. SOCIAL HISTORY Never smoker. No alcohol use or drug use. No recent travel. Is a local resident. FAMILY HISTORY Negative. ADDITIONAL NOTES The nursing notes have been reviewed with agreement regarding the chief complaint, HPI, ROS, PMH and patient medications and allergies. PHYSICAL EXAM Vital Signs: 06/22/2016 16:24 BP: 107/69. HR: 103. RR: 18. O2 saturation: 100%. Temp: 98.7 F. Have been reviewed as abnormal and appear to be correct. Blood pressure normal. Tachycardic. Respiratory rate normal. Temperature normal. Oxygen saturation normal. Appearance: Alert. Oriented X3. No acute distress. Head and Neck: Normal external inspection. Eyes: Pupils equal, round and reactive to light. ENT: Ears normal. Nose normal. Pharynx normal. Voice normal. Neck: Neck supple. CVS: Normal heart rate and rhythm. Heart sounds normal. Respiratory: No respiratory distress. Breath sounds normal. Abdomen: Nontender. No organomegaly. Skin: Skin warm and dry. Normal skin turgor. Extremities: Normal external inspection. Extremities nontender. Skin: Moderate urticaria involving the chest, abdomen and back, right upper extremity, right arm, right elbow, right forearm, left upper extremity, left arm, left elbow and left thigh. Normal skin color. Rash present. Urticaria present. Neuro: Oriented X 3. No motor deficit. No sensory deficit. PROGRESS AND PROCEDURES Patient counseled in person regarding the patient's stable condition and diagnosis. Differential Diagnosis: I considered contact dermatitis, yeast infection, type 1 hypersensitivity, drug eruption, toxic epidermal necrolysis, idiopathic urticaria, erythema multiforme, erythema nodosum, viral exanthem, varicella, measles, rubella, roseola and scarlet fever as a possible cause of rash in this patient. This is a partial list of diagnoses considered. Above considerations are based on history and physical exam. Differential diagnosis was discussed with patient. Disposition: Discharged home in good and improved condition. Condition: good and stable. CLINICAL IMPRESSION Acute urticaria secondary to allergy. Generalized allergic reaction with skin rash and hives of unknown cause. INSTRUCTIONS Warnings: GENERAL WARNINGS: Return or contact your physician immediately if your condition worsens or changes unexpectedly, if not improving as expected, or if other problems arise. Specifically return if problem worsens. Prescription Medications: Terri 180 mg tablets: take 1 orally daily for 10 days. Dispense ten (10). No refills. Prednisone 20 mg: take 3 orally every day for 10 days. Dispense sufficient quantity. No refills. Pepcid 40 mg RPD: take 1 orally at bedtime for 10 days. Dispense ten (10). No refills. Follow-up: Follow up with your doctor in two days as needed. Call for an appointment. Summary of care provided to patient. Understanding of the discharge instructions verbalized by patient. (Electronically signed by Kerri Paul A.R.N.P. 06/22/2016 19:38)
--- NOTE | 2016-06-22 19:38 | ED MAR SUMMARY ---
..... Medication Administration Record [facility] [address] [place] [address] Patient: LEILA LOPES Visit ID: [id number] 31y, F Weight: 92.0 kg Height/Length: 67 in BMI: 31.8 ALLERGIES: No Known Drug Allergy Given 16:38 06/22/2016 Manuel Colon, RCharliN. Medication Administered: BENADRYL [IM] (DIPHENHYDRAMINE HCL), Dose: 50 mg IM. Medication Ordered: Benadryl IM 50 mg (NOW). Given 16:38 06/22/2016 Manuel Colon, R.N. Medication Administered: DECADRON [IM] (DEXAMETHASONE SODIUM PHOSPHATE), Dose: 8 mg IM. Medication Ordered: Decadron IM 8 mg (NOW). Given 16:38 06/22/2016 Manuel Colon, R.N. Medication Administered: PEPCID [PO] (FAMOTIDINE), Dose: 40 mg Tablets PO. Medication Ordered: Pepcid PO 40 mg (NOW).
--- NOTE | 2016-06-22 19:38 | ED DISCHARGE INSTRUCTIONS ---
Patient: LEILA LOPES General Instructions [facility] VisitID: [id number] [place] [address] 31y, F Registration Date/Time: 06/22/2016 Acute urticaria secondary to allergy. Generalized allergic reaction with skin rash and hives of unknown cause. INSTRUCTIONS Warnings: GENERAL WARNINGS: Return or contact your physician immediately if your condition worsens or changes unexpectedly, if not improving as expected, or if other problems arise. Specifically return if problem worsens. Prescription Medications: Terri 180 mg tablets: take 1 orally daily for 10 days. Dispense ten (10). No refills. Prednisone 20 mg: take 3 orally every day for 10 days. Dispense sufficient quantity. No refills. Pepcid 40 mg RPD: take 1 orally at bedtime for 10 days. Dispense ten (10). No refills. Follow-up: Follow up with your doctor in two days as needed. Call for an appointment. Summary of care provided to patient. Understanding of the discharge instructions verbalized by patient. ADDITIONAL INFORMATION Allergic Reaction,Generalized [Other] You are having an allergic reaction. This may cause an itchy rash, dizziness, fainting, trouble breathing or swallowing, and swelling of the face or other parts of the body. This can be caused by exposure to something in your surroundings that you have become sensitive to. This could be due to medicine or food. This could also be due to something you put on your skin or in your hair or something in the air. Often it is not possible to find out exactly what has caused your reaction. The goal of today's treatment is to relieve symptoms. The rash will usually fade over several days, but can sometimes last up to two weeks. Home Care: 1) If you know what you are allergic to, avoid it because future reactions could be worse than this one. 2) Avoid tight clothing and anything that heats up your skin (hot showers/baths, direct sunlight) since heat will make itching worse. 3) An ice pack will relieve local areas of intense itching and redness. Lanacaine cream or Solarcaine spray (or other product containing "benzocaine", available without a prescription) will reduce the itching. 4) Oral Benadryl (diphenhydramine) is an antihistamine available at drug and grocery stores. Unless a prescription antihistamine was given, Benadryl may be used to reduce itching if large areas of the skin are involved. Use lower doses during the daytime and higher doses at bedtime since the drug may make you sleepy. [NOTE: Do not use Benadryl if you have glaucoma or if you are a man with trouble urinating due to an enlarged prostate.] Claritin (loratidine) is an antihistamine that causes less drowsiness and is a good alternative for daytime use. Follow Up Follow Up with your doctor or this facility in two days if your symptoms do not continue to improve. If you had a severe reaction today, or if you have had several mild-moderate allergic reactions in the past, ask your doctor about allergy testing to find out what you are allergic to. If your reaction included dizziness, fainting or trouble breathing or swallowing, ask your doctor about carrying an Allergy Kit (injectable epinephrine) for home use. Get Prompt Medical Attention if any of the following occur: -- Trouble breathing or swallowing -- New or worse swelling in the face, eyelids, lips, mouth, tongue or throat -- Dizziness, weakness or fainting Angioedema Angioedema (vajlufnttzyrnpt-t-sxaio) is a sudden appearance of swollen patches (edema) on the skin or mucous membranes. The swelling is painless and does not itch. It most often involves the face, lips, mouth, tongue, back of throat or vocal cords. It may also occur in other places such as the arms or legs. A rash may also appear during the first 4 days of this illness. The most common cause for this condition is a side-effect to a class of medicine calledACE inhibitor.This type of drug is used to treat high blood pressure. It includes captopril (Capoten), enalapril (Vasotec) and lisinopril (Prinivil, Zestril). Tell your doctor if you are taking any of these medicines. Other causes of angioedema include allergic reaction to something eaten, touched or inhaled. Angioedema may also be hereditary. In some cases, no cause can be found. Angioedema can lead to the swelling of the air passage in the mouth or throat. Severe swelling can block your breathing and cause . Your doctor believes that you are not at risk for this; however, be alert for early signs of increased swelling in the mouth or throat, or difficulty with swallowing or breathing. Angioedema may recur. It is therefore important to watch for the earliest signs of this condition (below). Return to the hospital promptly if swelling involves the face, mouth or throat areas. Home Care: Rest quietly today. No heavy exertion or excess physical activity. If you were told that your angioedema was from a medicine that you are taking, you must stop taking this medicine. Contact your doctor for a different one. In the future, advise medical staff that you are allergic to this medicine. If medicine was prescribed to treat angioedema (for example, steroids or antihistamines), take it as directed. Oral Benadryl (diphenhydramine) is an antihistamine available at drug and grocery stores. Unless another antihistamine was prescribed, Benadryl may be used to reduce swelling or itching. Use lower doses during the daytime and higher doses at bedtime since the drug may make you sleepy. [NOTE: Do not use Benadryl if you have glaucoma or if you are a man with trouble urinating due to an enlarged prostate.] Claritin (loratidine) is an antihistamine that causes less drowsiness and is a good alternative for daytime use. Follow Up with your doctor or as advised by our staff. Get Prompt Medical Attention if any of the following occur: Increase in swelling of lip, mouth, tongue or throat Trouble swallowing Trouble breathing Severe abdominal pains Anaphylaxis Anaphylaxis is the term for a severe allergic reaction. It may begin within minutes, up to a couple hours after exposure to the substance you are allergic to (allergen). Symptoms include nausea, vomiting, diarrhea or stomach cramps, itchy rash (hives), swelling of the eyes, lips, face or tongue, wheezing, difficulty breathing or swallowing, throat tightness, chest pain, dizziness or fainting. This kind of reaction can be life-threatening. Fortunately, your case has responded to treatment. Any remaining symptoms should resolve within 6-24 hours. If you are exposed to the same substance again, you may have the same or more severe reaction. Treatment for anaphylaxis is epinephrine (adrenalin). This is available by prescription as Epi-Pen for self-injection. If the cause of your reaction is known, you should avoid exposure in the future. If the cause is not known, follow up with your doctor for special testing to determine what you are allergic to. Home Care: Rest at home for the next 24 hours. Avoid tobacco and alcohol consumption. These may worsen your symptoms. If you know what caused your reaction today, avoid that in the future since the next reaction may be worse. Let your family members, friends and personal physician know about your allergic reaction. If your allergy was to food, learn how to read food labels so you can check for the offending substance. If a product does not have a label, it is best to avoid it. Consider carrying an identification card or getting a Medic-Alert bracelet to inform medical personnel of your condition in the event you are not able to do so yourself. If an Epi-Pen was prescribed, carry it at all times. It can be life-saving. Learn how to use the device. If you begin to feel the symptoms of another reaction in the future, use the Epi-Pen to inject yourself, and then call 911. Dont wait until symptoms become severe. Oral Benadryl (diphenhydramine) is an antihistamine available at drug and grocery stores. Unless a prescription antihistamine was given, Benadryl may be used to reduce itching if large areas of the skin are involved. Use lower doses during the daytime and higher doses at bedtime since the drug may make you sleepy. [NOTE: Do not use Benadryl if you have glaucoma or if you are a man with trouble urinating due to an enlarged prostate.] Claritin (loratidine) is an antihistamine that causes less drowsiness and is a good alternative for daytime use. If you were prescribed any medicines to prevent symptoms from returning, be sure to take them exactly as directed. Follow Up with your doctor or as advised if you are not improving over the next 1-2 days. If you do not know what caused this reaction, skin and blood tests, or an elimination diet may be helpful. You may locate an wax specialist in your area by contacting: [employer] www.aaaai.org [phone] [employer] www.acaai.org Get Prompt Medical Attention if any of the following occur: Worsening of your symptoms Trouble breathing or swallowing Swelling in the mouth or face Chest pain Dizziness, weakness or fainting Hives Hives is an itchy red rash that can appear suddenly and move about your body. It goes away in one place and comes back in another. This is usually caused by something that you are allergic to such as: EATING: fruit, shellfish, chocolate, nuts, tomatoes or medicine BREATHING: pollens, animal hair/fur or mold spores Exposure to cold air, sun rays or exercise can sometimes cause an attack. Many times we cannot find a cause. Medicines can be used to reduce itching and swelling. The rash will usually fade over several days, but can sometimes last up to two weeks. Home Care: 1) Do not wear tight clothing and do not take hot baths/showers since heat can make the itching worse. 2) An ice pack (ice cubes in a plastic bag, wrapped in a towel) will reduce local areas of redness and itching. Lanacaine cream or Solarcaine spray (or other product containing "benzocaine") will reduce itching. 3) Oral Benadryl (diphenhydramine) is an antihistamine available at drug and grocery stores. Unless a prescription antihistamine was given, Benadryl may be used to reduce itching if large areas of the skin are involved. Use lower doses during the daytime and higher doses at bedtime since the drug may make you sleepy. [NOTE: Do not use Benadryl if you have glaucoma or if you are a man with trouble urinating due to an enlarged prostate.] Claritin (loratadine) is an antihistamine that causes less drowsiness and is a good alternative for daytime use. 4) If you know what you are sensitive to, avoid this substance. Future reactions could be worse than this one. Follow Up with your doctor as directed by our staff, if symptoms do not begin to improve in two days. If you have had a severe reaction, or have had several episodes of hives, then ask your doctor about allergy testing to find out what you are allergic to. Get Prompt Medical Attention if any of the following occur: -- Trouble breathing or swallowing -- New or increased swelling in the face, lips, tongue or throat -- Dizziness, weakness or fainting Fexofenadine Hydrochloride Oral tablet What is this medicine? FEXOFENADINE (fex oh FEN a frances) is an antihistamine. This medicine is used to treat or prevent symptoms of allergies. It is also used to help reduce itchy skin rash and hives. How should I use this medicine? Take this medicine by mouth with a full glass of water. Follow the directions on the prescription label. You may take this medicine with food or on an empty stomach. Take your medicine at regular intervals. Do not take it more often than directed. You may need to take this medicine for several days before your symptoms improve. Talk to your concrete form setter and finisher regarding the use of this medicine in children. While this drug may be prescribed for children as young as 6 years old for selected conditions, precautions do apply. What side effects may I notice from receiving this medicine? Side effects that you should report to your doctor or health critical care cns as soon as possible: allergic reactions like skin rash, itching or hives, swelling of the face, lips, or tongue breathing problems chest pain fast heartbeat infection or fever Side effects that usually do not require medical attention (report to your doctor or health critical care cns if they continue or are bothersome): cough drowsiness dry or irritated nose, mouth, or throat headache menstrual changes pain stomach upset, nausea What may interact with this medicine? antacids erythromycin grapefruit, apple, or orange juice ketoconazole magnesium-containing products What if I miss a dose? If you miss a dose, take it as soon as you can. If it is almost time for your next dose, take only that dose. Do not take double or extra doses. Where should I keep my medicine? Keep out of the reach of children. Store at room temperature between 20 and 25 degrees C (68 and 77degrees F). Protect from moisture. Throw away any unused medicine after the expiration date. What should I tell my health care provider before I take this medicine? They need to know if you have any of these conditions: kidney disease an unusual or allergic reaction to fexofenadine, terfenadine, other medicines, foods, dyes, or preservatives or trying to get breast-feeding What should I watch for while using this medicine? Visit your doctor or health critical care cns for regular checks on your health. Tell your doctor or healthcare professional if your symptoms do not start to get better or if they get worse. Prednisone Oral tablet What is this medicine? PREDNISONE (PRED ni sone) is a corticosteroid. It is commonly used to treat inflammation of the skin, joints, lungs, and other organs. Common conditions treated include asthma, allergies, and arthritis. It is also used for other conditions, such as blood disorders and diseases of the adrenal glands. How should I use this medicine? Take this medicine by mouth with a glass of water. Follow the directions on the prescription label. Take this medicine with food. If you are taking this medicine once a day, take it in the morning. Do not take more medicine than you are told to take. Do not suddenly stop taking your medicine because you may develop a severe reaction. Your doctor will tell you how much medicine to take. If your doctor wants you to stop the medicine, the dose may be slowly lowered over time to avoid any side effects. Talk to your concrete form setter and finisher regarding the use of this medicine in children. Special care may be needed. What side effects may I notice from receiving this medicine? Side effects that you should report to your doctor or health critical care cns as soon as possible: allergic reactions like skin rash, itching or hives, swelling of the face, lips, or tongue changes in emotions or moods changes in vision depressed mood eye pain fever or chills, cough, sore throat, pain or difficulty passing urine increased thirst swelling of ankles, feet Side effects that usually do not require medical attention (report to your doctor or health critical care cns if they continue or are bothersome): confusion, excitement, restlessness headache nausea, vomiting skin problems, acne, thin and shiny skin trouble sleeping weight gain What may interact with this medicine? Do not take this medicine with any of the following medications: metyrapone mifepristone This medicine may also interact with the following medications: aminoglutethimide amphotericin B aspirin and aspirin-like medicines barbiturates certain medicines for diabetes, like glipizide or glyburide cholestyramine cholinesterase inhibitors cyclosporine digoxin diuretics ephedrine female hormones, like estrogens and control pills isoniazid ketoconazole NSAIDS, medicines for pain and inflammation, like ibuprofen or naproxen phenytoin rifampin toxoids vaccines warfarin What if I miss a dose? If you miss a dose, take it as soon as you can. If it is almost time for your next dose, talk to your doctor or health critical care cns. You may need to miss a dose or take an extra dose. Do not take double or extra doses without advice. Where should I keep my medicine? Keep out of the reach of children. Store at room temperature between 15 and 30 degrees C (59 and 86 degrees F). Protect from light. Keep container tightly closed. Throw away any unused medicine after the expiration date. What should I tell my health care provider before I take this medicine? They need to know if you have any of these conditions: Magy's syndrome diabetes glaucoma heart disease high blood pressure infection (especially a virus infection such as chickenpox, cold sores, or herpes) kidney disease liver disease mental illness myasthenia gravis osteoporosis seizures stomach or intestine problems thyroid disease an unusual or allergic reaction to lactose, prednisone, other medicines, foods, dyes, or preservatives or trying to get breast-feeding What should I watch for while using this medicine? Visit your doctor or health critical care cns for regular checks on your progress. If you are taking this medicine over a prolonged period, carry an identification card with your name and address, the type and dose of your medicine, and your doctor's name and address. This medicine may increase your risk of getting an infection. Tell your doctor or health critical care cns if you are around anyone with measles or chickenpox, or if you develop sores or blisters that do not heal properly. If you are going to have surgery, tell your doctor or health critical care cns that you have taken this medicine within the last twelve months. Ask your doctor or health critical care cns about your diet. You may need to lower the amount of salt you eat. This medicine may affect blood sugar levels. If you have diabetes, check with your doctor or health critical care cns before you change your diet or the dose of your diabetic medicine. Famotidine Oral tablet What is this medicine? FAMOTIDINE (fa PATRICIA ti frances) is a type of antihistamine that blocks the release of stomach acid. It is used to treat stomach or intestinal ulcers. It can also relieve heartburn from acid reflux. How should I use this medicine? Take this medicine by mouth with a glass of water. Follow the directions on the prescription label. If you only take this medicine once a day, take it at bedtime. Take your doses at regular intervals. Do not take your medicine more often than directed. Talk to your concrete form setter and finisher regarding the use of this medicine in children. Special care may be needed. What side effects may I notice from receiving this medicine? Side effects that you should report to your doctor or health critical care cns as soon as possible: agitation, nervousness confusion hallucinations skin rash, itching Side effects that usually do not require medical attention (report to your doctor or health critical care cns if they continue or are bothersome): constipation diarrhea dizziness headache What may interact with this medicine? delavirdine itraconazole ketoconazole What if I miss a dose? If you miss a dose, take it as soon as you can. If it is almost time for your next dose, take only that dose. Do not take double or extra doses. Where should I keep my medicine? Keep out of the reach of children. Store at room temperature between 15 and 30 degrees C (59 and 86 degrees F). Do not freeze. Throw away any unused medicine after the expiration date. What should I tell my health care provider before I take this medicine? They need to know if you have any of these conditions: kidney or liver disease trouble swallowing an unusual or allergic reaction to famotidine, other medicines, foods, dyes, or preservatives or trying to get breast-feeding What should I watch for while using this medicine? Tell your doctor or health critical care cns if your condition does not start to get better or if it gets worse. Finish the full course of tablets prescribed, even if you feel better. Do not take with aspirin, ibuprofen or other antiinflammatory medicines. These can make your condition worse. Do not smoke cigarettes or drink alcohol. These cause irritation in your stomach and can increase the time it will take for ulcers to heal. If you get black, tarry stools or vomit up what looks like coffee grounds, call your doctor or health critical care cns at once. You may have a bleeding ulcer. You have been given the following additional information: Allergic Reaction, Other (General) Angioedema Anaphylaxis, General Hives Fexofenadine Hydrochloride Oral tablet Prednisone Oral tablet Famotidine Oral tablet (Electronically signed by Kerri Paul A.R.N.P. 06/22/2016 19:38)
--- NOTE | 2016-06-22 19:38 | ED MAR SUMMARY ---
..... Medication Administration Record [facility] [address] [place] [address] Patient: LEILA LOPES Visit ID: [id number] 31y, F Weight: 92.0 kg Height/Length: 67 in BMI: 31.8 ALLERGIES: No Known Drug Allergy Given 16:38 06/22/2016 Manuel Colon, RCharliN. Medication Administered: BENADRYL [IM] (DIPHENHYDRAMINE HCL), Dose: 50 mg IM. Medication Ordered: Benadryl IM 50 mg (NOW). Given 16:38 06/22/2016 Manuel Colon, R.N. Medication Administered: DECADRON [IM] (DEXAMETHASONE SODIUM PHOSPHATE), Dose: 8 mg IM. Medication Ordered: Decadron IM 8 mg (NOW). Given 16:38 06/22/2016 Manuel Colon, R.N. Medication Administered: PEPCID [PO] (FAMOTIDINE), Dose: 40 mg Tablets PO. Medication Ordered: Pepcid PO 40 mg (NOW).
--- NOTE | 2016-06-22 19:38 | ED MED RECONCILIATION SUMMARY ---
Patient: LEILA LOPES Medication Reconciliation Report [facility] VisitID: [id number] [place] [address] 31y, F Registration Date/Time: 06/22/2016 Weight: 92.0 kg Height/Length: 67 in. BMI: 31.8 ALLERGIES: No Known Drug Allergy The patient's Home Medications are listed below: NONE. The source(s) of the original Home Medication information: Not obtained. The following Medications were given to the patient in the Emergency Department: Benadryl [IM] IM 50 mg, administered: 06/22/2016 4:38:00 PM Decadron [IM] IM 8 mg, administered: 06/22/2016 4:38:00 PM Pepcid [PO] PO 40 mg, administered: 06/22/2016 4:38:00 PM The following Medications were prescribed to the patient: Terri 180 mg tablets: take 1 orally daily for 10 days. Dispense ten (10). No refills. -- Kerri Paul A.R.N.P. Prednisone 20 mg: take 3 orally every day for 10 days. Dispense sufficient quantity. No refills. -- Kerri Paul A.R.N.P. Pepcid 40 mg RPD: take 1 orally at bedtime for 10 days. Dispense ten (10). No refills. -- Kerri Paul A.R.N.P.
--- NOTE | 2016-06-22 19:38 | ED DISCHARGE INSTRUCTIONS ---
Patient: LEILA LOPES General Instructions [facility] VisitID: [id number] [place] [address] 31y, F Registration Date/Time: 06/22/2016 Acute urticaria secondary to allergy. Generalized allergic reaction with skin rash and hives of unknown cause. INSTRUCTIONS Warnings: GENERAL WARNINGS: Return or contact your physician immediately if your condition worsens or changes unexpectedly, if not improving as expected, or if other problems arise. Specifically return if problem worsens. Prescription Medications: Terri 180 mg tablets: take 1 orally daily for 10 days. Dispense ten (10). No refills. Prednisone 20 mg: take 3 orally every day for 10 days. Dispense sufficient quantity. No refills. Pepcid 40 mg RPD: take 1 orally at bedtime for 10 days. Dispense ten (10). No refills. Follow-up: Follow up with your doctor in two days as needed. Call for an appointment. Summary of care provided to patient. Understanding of the discharge instructions verbalized by patient. ADDITIONAL INFORMATION Allergic Reaction,Generalized [Other] You are having an allergic reaction. This may cause an itchy rash, dizziness, fainting, trouble breathing or swallowing, and swelling of the face or other parts of the body. This can be caused by exposure to something in your surroundings that you have become sensitive to. This could be due to medicine or food. This could also be due to something you put on your skin or in your hair or something in the air. Often it is not possible to find out exactly what has caused your reaction. The goal of today's treatment is to relieve symptoms. The rash will usually fade over several days, but can sometimes last up to two weeks. Home Care: 1) If you know what you are allergic to, avoid it because future reactions could be worse than this one. 2) Avoid tight clothing and anything that heats up your skin (hot showers/baths, direct sunlight) since heat will make itching worse. 3) An ice pack will relieve local areas of intense itching and redness. Lanacaine cream or Solarcaine spray (or other product containing "benzocaine", available without a prescription) will reduce the itching. 4) Oral Benadryl (diphenhydramine) is an antihistamine available at drug and grocery stores. Unless a prescription antihistamine was given, Benadryl may be used to reduce itching if large areas of the skin are involved. Use lower doses during the daytime and higher doses at bedtime since the drug may make you sleepy. [NOTE: Do not use Benadryl if you have glaucoma or if you are a man with trouble urinating due to an enlarged prostate.] Claritin (loratidine) is an antihistamine that causes less drowsiness and is a good alternative for daytime use. Follow Up Follow Up with your doctor or this facility in two days if your symptoms do not continue to improve. If you had a severe reaction today, or if you have had several mild-moderate allergic reactions in the past, ask your doctor about allergy testing to find out what you are allergic to. If your reaction included dizziness, fainting or trouble breathing or swallowing, ask your doctor about carrying an Allergy Kit (injectable epinephrine) for home use. Get Prompt Medical Attention if any of the following occur: -- Trouble breathing or swallowing -- New or worse swelling in the face, eyelids, lips, mouth, tongue or throat -- Dizziness, weakness or fainting Angioedema Angioedema (hnnfsmehgaeryih-a-fzlyw) is a sudden appearance of swollen patches (edema) on the skin or mucous membranes. The swelling is painless and does not itch. It most often involves the face, lips, mouth, tongue, back of throat or vocal cords. It may also occur in other places such as the arms or legs. A rash may also appear during the first 4 days of this illness. The most common cause for this condition is a side-effect to a class of medicine calledACE inhibitor.This type of drug is used to treat high blood pressure. It includes captopril (Capoten), enalapril (Vasotec) and lisinopril (Prinivil, Zestril). Tell your doctor if you are taking any of these medicines. Other causes of angioedema include allergic reaction to something eaten, touched or inhaled. Angioedema may also be hereditary. In some cases, no cause can be found. Angioedema can lead to the swelling of the air passage in the mouth or throat. Severe swelling can block your breathing and cause . Your doctor believes that you are not at risk for this; however, be alert for early signs of increased swelling in the mouth or throat, or difficulty with swallowing or breathing. Angioedema may recur. It is therefore important to watch for the earliest signs of this condition (below). Return to the hospital promptly if swelling involves the face, mouth or throat areas. Home Care: Rest quietly today. No heavy exertion or excess physical activity. If you were told that your angioedema was from a medicine that you are taking, you must stop taking this medicine. Contact your doctor for a different one. In the future, advise medical staff that you are allergic to this medicine. If medicine was prescribed to treat angioedema (for example, steroids or antihistamines), take it as directed. Oral Benadryl (diphenhydramine) is an antihistamine available at drug and grocery stores. Unless another antihistamine was prescribed, Benadryl may be used to reduce swelling or itching. Use lower doses during the daytime and higher doses at bedtime since the drug may make you sleepy. [NOTE: Do not use Benadryl if you have glaucoma or if you are a man with trouble urinating due to an enlarged prostate.] Claritin (loratidine) is an antihistamine that causes less drowsiness and is a good alternative for daytime use. Follow Up with your doctor or as advised by our staff. Get Prompt Medical Attention if any of the following occur: Increase in swelling of lip, mouth, tongue or throat Trouble swallowing Trouble breathing Severe abdominal pains Anaphylaxis Anaphylaxis is the term for a severe allergic reaction. It may begin within minutes, up to a couple hours after exposure to the substance you are allergic to (allergen). Symptoms include nausea, vomiting, diarrhea or stomach cramps, itchy rash (hives), swelling of the eyes, lips, face or tongue, wheezing, difficulty breathing or swallowing, throat tightness, chest pain, dizziness or fainting. This kind of reaction can be life-threatening. Fortunately, your case has responded to treatment. Any remaining symptoms should resolve within 6-24 hours. If you are exposed to the same substance again, you may have the same or more severe reaction. Treatment for anaphylaxis is epinephrine (adrenalin). This is available by prescription as Epi-Pen for self-injection. If the cause of your reaction is known, you should avoid exposure in the future. If the cause is not known, follow up with your doctor for special testing to determine what you are allergic to. Home Care: Rest at home for the next 24 hours. Avoid tobacco and alcohol consumption. These may worsen your symptoms. If you know what caused your reaction today, avoid that in the future since the next reaction may be worse. Let your family members, friends and personal physician know about your allergic reaction. If your allergy was to food, learn how to read food labels so you can check for the offending substance. If a product does not have a label, it is best to avoid it. Consider carrying an identification card or getting a Medic-Alert bracelet to inform medical personnel of your condition in the event you are not able to do so yourself. If an Epi-Pen was prescribed, carry it at all times. It can be life-saving. Learn how to use the device. If you begin to feel the symptoms of another reaction in the future, use the Epi-Pen to inject yourself, and then call 911. Dont wait until symptoms become severe. Oral Benadryl (diphenhydramine) is an antihistamine available at drug and grocery stores. Unless a prescription antihistamine was given, Benadryl may be used to reduce itching if large areas of the skin are involved. Use lower doses during the daytime and higher doses at bedtime since the drug may make you sleepy. [NOTE: Do not use Benadryl if you have glaucoma or if you are a man with trouble urinating due to an enlarged prostate.] Claritin (loratidine) is an antihistamine that causes less drowsiness and is a good alternative for daytime use. If you were prescribed any medicines to prevent symptoms from returning, be sure to take them exactly as directed. Follow Up with your doctor or as advised if you are not improving over the next 1-2 days. If you do not know what caused this reaction, skin and blood tests, or an elimination diet may be helpful. You may locate an aircraft engine specialist in your area by contacting: [employer] www.aaaai.org [phone] [employer] www.acaai.org Get Prompt Medical Attention if any of the following occur: Worsening of your symptoms Trouble breathing or swallowing Swelling in the mouth or face Chest pain Dizziness, weakness or fainting Hives Hives is an itchy red rash that can appear suddenly and move about your body. It goes away in one place and comes back in another. This is usually caused by something that you are allergic to such as: EATING: fruit, shellfish, chocolate, nuts, tomatoes or medicine BREATHING: pollens, animal hair/fur or mold spores Exposure to cold air, sun rays or exercise can sometimes cause an attack. Many times we cannot find a cause. Medicines can be used to reduce itching and swelling. The rash will usually fade over several days, but can sometimes last up to two weeks. Home Care: 1) Do not wear tight clothing and do not take hot baths/showers since heat can make the itching worse. 2) An ice pack (ice cubes in a plastic bag, wrapped in a towel) will reduce local areas of redness and itching. Lanacaine cream or Solarcaine spray (or other product containing "benzocaine") will reduce itching. 3) Oral Benadryl (diphenhydramine) is an antihistamine available at drug and grocery stores. Unless a prescription antihistamine was given, Benadryl may be used to reduce itching if large areas of the skin are involved. Use lower doses during the daytime and higher doses at bedtime since the drug may make you sleepy. [NOTE: Do not use Benadryl if you have glaucoma or if you are a man with trouble urinating due to an enlarged prostate.] Claritin (loratadine) is an antihistamine that causes less drowsiness and is a good alternative for daytime use. 4) If you know what you are sensitive to, avoid this substance. Future reactions could be worse than this one. Follow Up with your doctor as directed by our staff, if symptoms do not begin to improve in two days. If you have had a severe reaction, or have had several episodes of hives, then ask your doctor about allergy testing to find out what you are allergic to. Get Prompt Medical Attention if any of the following occur: -- Trouble breathing or swallowing -- New or increased swelling in the face, lips, tongue or throat -- Dizziness, weakness or fainting Fexofenadine Hydrochloride Oral tablet What is this medicine? FEXOFENADINE (fex oh FEN a frances) is an antihistamine. This medicine is used to treat or prevent symptoms of allergies. It is also used to help reduce itchy skin rash and hives. How should I use this medicine? Take this medicine by mouth with a full glass of water. Follow the directions on the prescription label. You may take this medicine with food or on an empty stomach. Take your medicine at regular intervals. Do not take it more often than directed. You may need to take this medicine for several days before your symptoms improve. Talk to your customer services manager regarding the use of this medicine in children. While this drug may be prescribed for children as young as 6 years old for selected conditions, precautions do apply. What side effects may I notice from receiving this medicine? Side effects that you should report to your doctor or health intensive care unit nurse as soon as possible: allergic reactions like skin rash, itching or hives, swelling of the face, lips, or tongue breathing problems chest pain fast heartbeat infection or fever Side effects that usually do not require medical attention (report to your doctor or health intensive care unit nurse if they continue or are bothersome): cough drowsiness dry or irritated nose, mouth, or throat headache menstrual changes pain stomach upset, nausea What may interact with this medicine? antacids erythromycin grapefruit, apple, or orange juice ketoconazole magnesium-containing products What if I miss a dose? If you miss a dose, take it as soon as you can. If it is almost time for your next dose, take only that dose. Do not take double or extra doses. Where should I keep my medicine? Keep out of the reach of children. Store at room temperature between 20 and 25 degrees C (68 and 77degrees F). Protect from moisture. Throw away any unused medicine after the expiration date. What should I tell my health care provider before I take this medicine? They need to know if you have any of these conditions: kidney disease an unusual or allergic reaction to fexofenadine, terfenadine, other medicines, foods, dyes, or preservatives or trying to get breast-feeding What should I watch for while using this medicine? Visit your doctor or health intensive care unit nurse for regular checks on your health. Tell your doctor or healthcare professional if your symptoms do not start to get better or if they get worse. Prednisone Oral tablet What is this medicine? PREDNISONE (PRED ni sone) is a corticosteroid. It is commonly used to treat inflammation of the skin, joints, lungs, and other organs. Common conditions treated include asthma, allergies, and arthritis. It is also used for other conditions, such as blood disorders and diseases of the adrenal glands. How should I use this medicine? Take this medicine by mouth with a glass of water. Follow the directions on the prescription label. Take this medicine with food. If you are taking this medicine once a day, take it in the morning. Do not take more medicine than you are told to take. Do not suddenly stop taking your medicine because you may develop a severe reaction. Your doctor will tell you how much medicine to take. If your doctor wants you to stop the medicine, the dose may be slowly lowered over time to avoid any side effects. Talk to your customer services manager regarding the use of this medicine in children. Special care may be needed. What side effects may I notice from receiving this medicine? Side effects that you should report to your doctor or health intensive care unit nurse as soon as possible: allergic reactions like skin rash, itching or hives, swelling of the face, lips, or tongue changes in emotions or moods changes in vision depressed mood eye pain fever or chills, cough, sore throat, pain or difficulty passing urine increased thirst swelling of ankles, feet Side effects that usually do not require medical attention (report to your doctor or health intensive care unit nurse if they continue or are bothersome): confusion, excitement, restlessness headache nausea, vomiting skin problems, acne, thin and shiny skin trouble sleeping weight gain What may interact with this medicine? Do not take this medicine with any of the following medications: metyrapone mifepristone This medicine may also interact with the following medications: aminoglutethimide amphotericin B aspirin and aspirin-like medicines barbiturates certain medicines for diabetes, like glipizide or glyburide cholestyramine cholinesterase inhibitors cyclosporine digoxin diuretics ephedrine female hormones, like estrogens and control pills isoniazid ketoconazole NSAIDS, medicines for pain and inflammation, like ibuprofen or naproxen phenytoin rifampin toxoids vaccines warfarin What if I miss a dose? If you miss a dose, take it as soon as you can. If it is almost time for your next dose, talk to your doctor or health intensive care unit nurse. You may need to miss a dose or take an extra dose. Do not take double or extra doses without advice. Where should I keep my medicine? Keep out of the reach of children. Store at room temperature between 15 and 30 degrees C (59 and 86 degrees F). Protect from light. Keep container tightly closed. Throw away any unused medicine after the expiration date. What should I tell my health care provider before I take this medicine? They need to know if you have any of these conditions: Magy's syndrome diabetes glaucoma heart disease high blood pressure infection (especially a virus infection such as chickenpox, cold sores, or herpes) kidney disease liver disease mental illness myasthenia gravis osteoporosis seizures stomach or intestine problems thyroid disease an unusual or allergic reaction to lactose, prednisone, other medicines, foods, dyes, or preservatives or trying to get breast-feeding What should I watch for while using this medicine? Visit your doctor or health intensive care unit nurse for regular checks on your progress. If you are taking this medicine over a prolonged period, carry an identification card with your name and address, the type and dose of your medicine, and your doctor's name and address. This medicine may increase your risk of getting an infection. Tell your doctor or health intensive care unit nurse if you are around anyone with measles or chickenpox, or if you develop sores or blisters that do not heal properly. If you are going to have surgery, tell your doctor or health intensive care unit nurse that you have taken this medicine within the last twelve months. Ask your doctor or health intensive care unit nurse about your diet. You may need to lower the amount of salt you eat. This medicine may affect blood sugar levels. If you have diabetes, check with your doctor or health intensive care unit nurse before you change your diet or the dose of your diabetic medicine. Famotidine Oral tablet What is this medicine? FAMOTIDINE (fa PATRICIA ti frances) is a type of antihistamine that blocks the release of stomach acid. It is used to treat stomach or intestinal ulcers. It can also relieve heartburn from acid reflux. How should I use this medicine? Take this medicine by mouth with a glass of water. Follow the directions on the prescription label. If you only take this medicine once a day, take it at bedtime. Take your doses at regular intervals. Do not take your medicine more often than directed. Talk to your customer services manager regarding the use of this medicine in children. Special care may be needed. What side effects may I notice from receiving this medicine? Side effects that you should report to your doctor or health intensive care unit nurse as soon as possible: agitation, nervousness confusion hallucinations skin rash, itching Side effects that usually do not require medical attention (report to your doctor or health intensive care unit nurse if they continue or are bothersome): constipation diarrhea dizziness headache What may interact with this medicine? delavirdine itraconazole ketoconazole What if I miss a dose? If you miss a dose, take it as soon as you can. If it is almost time for your next dose, take only that dose. Do not take double or extra doses. Where should I keep my medicine? Keep out of the reach of children. Store at room temperature between 15 and 30 degrees C (59 and 86 degrees F). Do not freeze. Throw away any unused medicine after the expiration date. What should I tell my health care provider before I take this medicine? They need to know if you have any of these conditions: kidney or liver disease trouble swallowing an unusual or allergic reaction to famotidine, other medicines, foods, dyes, or preservatives or trying to get breast-feeding What should I watch for while using this medicine? Tell your doctor or health intensive care unit nurse if your condition does not start to get better or if it gets worse. Finish the full course of tablets prescribed, even if you feel better. Do not take with aspirin, ibuprofen or other antiinflammatory medicines. These can make your condition worse. Do not smoke cigarettes or drink alcohol. These cause irritation in your stomach and can increase the time it will take for ulcers to heal. If you get black, tarry stools or vomit up what looks like coffee grounds, call your doctor or health intensive care unit nurse at once. You may have a bleeding ulcer. You have been given the following additional information: Allergic Reaction, Other (General) Angioedema Anaphylaxis, General Hives Fexofenadine Hydrochloride Oral tablet Prednisone Oral tablet Famotidine Oral tablet (Electronically signed by Kerri Paul A.R.N.P. 06/22/2016 19:38)
--- NOTE | 2016-06-22 19:38 | ED MED RECONCILIATION SUMMARY ---
Patient: LEILA LOPES Medication Reconciliation Report [facility] VisitID: [id number] [place] [address] 31y, F Registration Date/Time: 06/22/2016 Weight: 92.0 kg Height/Length: 67 in. BMI: 31.8 ALLERGIES: No Known Drug Allergy The patient's Home Medications are listed below: NONE. The source(s) of the original Home Medication information: Not obtained. The following Medications were given to the patient in the Emergency Department: Benadryl [IM] IM 50 mg, administered: 06/22/2016 4:38:00 PM Decadron [IM] IM 8 mg, administered: 06/22/2016 4:38:00 PM Pepcid [PO] PO 40 mg, administered: 06/22/2016 4:38:00 PM The following Medications were prescribed to the patient: Terri 180 mg tablets: take 1 orally daily for 10 days. Dispense ten (10). No refills. -- Kerri Paul A.R.N.P. Prednisone 20 mg: take 3 orally every day for 10 days. Dispense sufficient quantity. No refills. -- Kerri Paul A.R.N.P. Pepcid 40 mg RPD: take 1 orally at bedtime for 10 days. Dispense ten (10). No refills. -- Kerri Paul A.R.N.P.
== END 2016-06-22 16:45 | disposition home or self-care (01) ==
LOC: ED SRH 16:11
DX: L50.9 Urticaria, unspecified (principal); T78.40XA Allergy, unspecified, initial encounter; R21 Rash and other nonspecific skin eruption